=== PATIENT | female | born 1960 | race Two or more races ===

== ENCOUNTER 2016-06-01 19:49 | Inpatient (IN) | payer MEDICAID ==
--- NOTE | 2016-06-01 20:13 | EDPHY ---
H & P Stated Complaint: AMS, psych eval? Time Seen by Provider: 06/01/16 20:13 HPI/ROS: CHIEF COMPLAINT: AMS, agitation. HISTORY OF PRESENT ILLNESS: The patient is a 56-year-old female with who presents with AMS since yesterday. She has a history of dementia and brain atrophy and has a baseline that involves some confusion and disorientation. She was placed on anti-psychotics when she began to get angry and agitated at her children. Her daughter reports that she fell and hit her head 2 weeks ago and had a negative head CT in the hospital ([facility]). She has not been on her anti-psychotics since then. Since yesterday she has become increasingly agitated and confused. Her daughter says she is disoriented and has been smashing glasses at home. She is oriented to her address and the year. She believes it is June and a Thursday. Her daughter reports she has been having diarrhea, which is chronic. No fever, chills, chest pain, shortness of breath, palpitations, vomiting, urinary complaints, headache, lightheadedness. She does keep repeating that she has been falling down the stairs. She takes donepezil and Memantine for dementia. Her daughter called the [facility] today and has been attempting to find advanced care for the patient. REVIEW OF SYSTEMS: Limited secondary to patient's clinical condition. PAST MEDICAL HISTORY: "Brain atrophy," sleep apnea. Dementia. SOCIAL HISTORY: Here with family, lives in [place]. VITAL SIGNS: Reviewed by me GENERAL: Well-developed, well-nourished, resting comfortably in no respiratory distress. Keeps repeating I want purple hair. HEENT: Atraumatic. Eyes: No icterus, no injection. Mouth: Dry mucous membranes. No erythema or lesions. Neck: supple with no adenopathy. LUNGS: Clear to auscultation bilaterally, no wheezes, rhonchi or rales. CARDIAC: Regular rate and rhythm, no rubs, murmurs or gallops. ABDOMEN: Soft, nontender, nondistended, bowel sounds normal. BACK: No CVA tenderness. EXTREMITIES: No trauma. No edema. Range of motion is normal throughout. NEURO: Alert and oriented to person and place. Moving all extremities times 4. Grossly nonfocal. Normal stxqqe-hy-yrry. Normal gait. SKIN: Warm and dry, no rash. PSYCHIATRIC: Normal mentation, no agitation but she has occasionally swearing at her children. Portions of this note were transcribed by a medical manager. I personally performed a history, physical exam, medical decision making, and confirmed accuracy of information the transcribed note. Source: Family Exam Limitations: No limitations, Clinical condition - Medical/Surgical History Other PMH: brain atrophy?, sleep apnea - Social History Smoking Status: Never smoked Constitutional: Initial Vital Signs Heart Rate 81 06/01/16 20:07 Respiratory Rate 20 06/01/16 20:07 Blood Pressure 113/79 06/01/16 20:07 O2 Sat (%) 97 06/01/16 20:07 O2 Delivery Mode Room Air Allergies/Adverse Reactions: No Known Allergies Allergy (Unverified 06/01/16 20:06) Home Medications: Medication Instructions Recorded CALCIUM CITRATE 09/24/10 Diazepam [Valium] 2 mg PO Q8PRN PRN #10 tablet 09/24/10 Fish Oil 09/24/10 GLUCOSAMINE HCL 09/24/10 Garlic 09/24/10 VITAMIN D 09/24/10 Vitamin C 500mg 09/24/10 Vitamin E 09/24/10 Medical Decision Making - Diagnostics Imaging: Results: CT scan of the head was obtained. I viewed the images independently on the PACS system. I discussed the results of the study with the radiologist. Impression: Atrophy of the frontal and temporal lobes, could be consistent with Lewy body dementia. Please see the full radiology report. ED Course/Re-evaluation: An IV was established and labs ordered. Evaluation for metabolic cause of the patient's altered mental status was ordered. This is largely unremarkable. CT scan of the head demonstrates frontal and temporal atrophy, potentially consistent with Lewy body dementia. Patient's course was discussed with Dr. Dona Dennis Differential Diagnosis: After the history was obtained and physical exam performed, the following differential for the patient's altered mental status was considered included but was not limited to hypoglycemia, electrolyte disturbances, intercranial hemorrhage, tumor, drug or alcohol intoxication, stroke, dementia, dementia with psychotic features, or TIA. Consult/Admit Bed Type: Dr. Dona Giron, med surg - Data Points Laboratory Results: Laboratory Results 06/01/16 21:00 06/01/16 21:00 06/01/16 06/01/16 21:00 20:55 WBC 5.29 10^3/uL (3.80-9.50) RBC 4.39 10^6/uL (4.18-5.33) Hgb 13.5 g/dL (12.6-16.3) Hct 39.7 % (38.0-47.0) MCV 90.4 fL (81.5-99.8) MCH 30.8 pg (27.9-34.1) MCHC 34.0 g/dL (32.4-36.7) RDW 13.5 % (11.5-15.2) Plt Count 541 H 10^3/uL (150-400) MPV 8.2 L fL (8.7-11.7) Neut % (Auto) 53.3 % (39.3-74.2) Lymph % (Auto) 34.4 % (15.0-45.0) [place] % (Auto) 8.1 % (4.5-13.0) Eos % (Auto) 3.2 % (0.6-7.6) Baso % (Auto) 0.6 % (0.3-1.7) Nucleat RBC Rel Count 0.0 % (0.0-0.2) Absolute Neuts (auto) 2.82 10^3/uL (1.70-6.50) Absolute Lymphs (auto) 1.82 10^3/uL (1.00-3.00) Absolute Monos (auto) 0.43 10^3/uL (0.30-0.80) Absolute Eos (auto) 0.17 10^3/uL (0.03-0.40) Absolute Basos (auto) 0.03 10^3/uL (0.02-0.10) Absolute Nucleated RBC 0.00 10^3/uL (0-0.01) Immature Gran % 0.4 % (0.0-1.1) Immature Gran # 0.02 10^3/uL (0.00-0.10) Sodium 136 mEq/L (134-144) Potassium 4.6 mEq/L (3.5-5.2) Chloride 105 mEq/L (97-110) Carbon Dioxide 25 mEq/l (22-31) Anion Gap 6 mEq/L (8-16) BUN 12 mg/dL (7-23) Creatinine 0.5 L mg/dL (0.6-1.0) Estimated GFR > 60 Glucose 97 mg/dL (70-100) Calcium 9.4 mg/dL (8.5-10.4) Total Bilirubin 0.4 mg/dL (0.1-1.4) Conjugated Bilirubin 0.2 mg/dL (0.0-0.5) Unconjugated Bilirubin 0.2 mg/dL (0.0-1.1) AST 52 H IU/L (14-46) ALT 84 H IU/L (9-52) Alkaline Phosphatase 114 IU/L (38-126) Troponin I < 0.012 ng/mL (0-0.034) Total Protein 7.0 g/dL (6.3-8.2) Albumin 4.1 g/dL (3.5-5.0) Lipase 185.0 IU/L (23-300) Urine Color YELLOW Urine Appearance HAZY Urine pH 5.0 (5.0-7.5) Ur Specific [place] 1.005 (1.002-1.030) Urine Protein NEGATIVE (NEGATIVE) Urine Ketones NEGATIVE (NEGATIVE) Urine Blood 1+ H (NEGATIVE) Urine Nitrate NEGATIVE (NEGATIVE) Urine Bilirubin NEGATIVE (NEGATIVE) Urine Urobilinogen NEGATIVE EU (0.2-1.0) Ur Leukocyte Esterase NEGATIVE (NEGATIVE) Urine RBC 1-3 /hpf (0-3) Urine WBC 1-3 /hpf (0-3) Ur Epithelial Cells TRACE /lpf (NONE-1+) Ur Culture Indicated? NOT INDICATED (NI) Urine Glucose NEGATIVE (NEGATIVE) Urine Opiates Screen NEGATIVE (NEGATIVE) Urine Barbiturates NEGATIVE (NEGATIVE) Ur Phencyclidine Scrn NEGATIVE (NEGATIVE) Ur Amphetamine Screen NEGATIVE (NEGATIVE) U Benzodiazepines Scrn NEGATIVE (NEGATIVE) Urine Cocaine Screen NEGATIVE (NEGATIVE) U Marijuana (THC) Screen NEGATIVE (NEGATIVE) Departure - Departure Disposition: [facility] Impression: Altered mental status Qualifiers: Altered mental status type: unspecified Qualifier Code: (R41.82) Altered mental status, unspecified Dementia Qualifiers: Dementia type: unspecified type Dementia behavioral disturbance: with behavioral disturbance Qualifier Code: (F03.91) Unspecified dementia with behavioral disturbance Condition: Good Report Scribed for: Viviane M Feldhaus Report Scribed by: Peter Herrera Date of Report: 06/01/16 Time of Report: 20:24
[2016-06-01 21:12] LABS: COLOR YELLOW; LEUKOCYTE ESTERASE,URINE NEGATIVE (NEGATIVE); NITRITE,URINE NEGATIVE (NEGATIVE)
[2016-06-01 21:35] LABS: % IMMATURE GRANULYOCYTES 0.4 % (0.0-1.1); ABSOLUTE IMMATURE GRANULOCYTES 0.02 10^3/uL (0.00-0.10); ADD DIFF? NO; ADD MORPH? NO; ADD SCAN? NO; ATYPICAL LYMPHOCYTE FLAG 10 (0-99); FRAGMENT RBC FLAG 0 (0-99); HEMATOCRIT 39.7 % (38.0-47.0); HEMOGLOBIN 13.5 g/dL (12.6-16.3); LEFT SHIFT FLG 0 (0-99); LIPEMIA HEMOLYSIS FLAG 90 (0-99); MEAN CELL HEMOGLOBIN 30.8 pg (27.9-34.1); MEAN CELL VOLUME 90.4 fL (81.5-99.8); MEAN PLATELET VOLUME 8.2 fL (8.7-11.7); PLATELET CLUMPS FLAG 0 (0-99); PLATELET COUNT 541 10^3/uL (150-400); RED BLOOD CELL COUNT 4.39 10^6/uL (4.18-5.33); RED CELL DISTRIBUTION WIDTH 13.5 % (11.5-15.2)
[2016-06-01 22:01] LABS: ALANINE AMINOTRANSFERASE 84 IU/L (9-52); ALBUMIN 4.1 g/dL (3.5-5.0); ALKALINE PHOSPHATASE 114 IU/L (38-126); ANION GAP 6 mEq/L (8-16); ASPARTATE AMINOTRANSFERASE 52 IU/L (14-46); BILIRUBIN,TOTAL 0.4 mg/dL (0.1-1.4); BILIRUBIN-CONJUGATED 0.2 mg/dL (0.0-0.5); BILIRUBIN-UNCONJUGATED 0.2 mg/dL (0.0-1.1); CALCIUM 9.4 mg/dL (8.5-10.4); CARBON DIOXIDE 25 mEq/l (22-31); CHLORIDE 105 mEq/L (97-110); CREATININE 0.5 mg/dL (0.6-1.0); GLOMERULAR FILTRATION RATE > 60; GLUCOSE 97 mg/dL (70-100); POTASSIUM 4.6 mEq/L (3.5-5.2); SODIUM 136 mEq/L (134-144)
[2016-06-01 22:12] LABS: TROPONIN I < 0.012 ng/mL (0-0.034)
[2016-06-01] MEDS ORDERED: LORazepam 2 MG/ML INJ IVP ONE (22:13)
[2016-06-01] MEDS ORDERED: ONDANSETRON DISINTEGRATING 4 MG TAB PO PRN (23:10)
[2016-06-01] MEDS ORDERED: ONDANSETRON 4 MG/2 ML VIAL IVP PRN (23:10)
[2016-06-01] MEDS ORDERED: ACETAMINOPHEN 325 MG TAB PO PRN (23:10)
[2016-06-01] MEDS ORDERED: LORazepam 2 MG/ML INJ IVP PRN (23:10)
--- NOTE | 2016-06-01 23:46 | PDGENHP ---
History and Physical - Chief Complaint agitation - History of Present Illness the patient is a 56-year-old female with early onset dementia of unclear etiology who was brought to the ED with by her daughter for worsening behavioral disturbances. History is provided by patient's daughter as patient is unable to give detailed history, she kept stating she wanted to dye her purple. Per daughter, patient has been diagnosed with an early onset dementia of unclear etiology. She follows with Dr. Novoa and reports patient had brain imaging that revealed atrophy. Dementia has been complicated by behavioral disturbances, mostly agitation and aggression. Daughter states for the past 2 weeks these behavioral disturbances have been significantly worse. She has been hitting out who her family members, throwing objects and also falling more frequently. Daughter has been trying to arrange for home services or evaluation for long-term facility placement, but has been having difficulty with this. Today patient's behavior was too much for daughter to handle, so she called a crisis hotline and was directed to bring her mother to the ED for further evaluation. Daughter denies any recent evidence of fevers, chills, cough, nausea, vomiting or urinary complaints. Patient also denies any headache or pain on my evaluation. On arrival to the ED patient was hemodynamically stable. Labs were unremarkable. CT head revealed mild frontal/ temporal atrophy but no acute pathology. She was then admitted to the hospital service for further management. History Information - Allergies/Home Medication List Allergies/Adverse Reactions: No Known Allergies Allergy (Unverified 06/01/16 20:06) Home Medications: CALCIUM CITRATE 09/24/10 [Last Taken Unknown] Fish Oil 09/24/10 [Last Taken Unknown] GLUCOSAMINE HCL 09/24/10 [Last Taken Unknown] Garlic 09/24/10 [Last Taken Unknown] VITAMIN D 09/24/10 [Last Taken Unknown] Vitamin C 500mg 09/24/10 [Last Taken Unknown] Vitamin E 09/24/10 [Last Taken Unknown] I have personally reviewed and updated: family history, medical history, social history, surgical history - Past Medical History Additional medical history: early onset dementia. CLIFF - Surgical History Additional surgical history: . wrist surgery - Family History Additional family history: M: Alzheimer's dementia - Social History Smoking Status: Never smoked Alcohol Use: None Drug Use: None Additional social history: patient lives with her ex-, has 2 children who aid in her ADLs. Review of Systems ROS: 10pt was reviewed & negative except for what was stated in HPI & below Physical Exam Temp Pulse Resp BP Pulse Ox 82 18 107/62 96 06/01/16 23:28 06/01/16 23:28 06/01/16 23:28 06/01/16 23:28 Constitutional: no apparent distress, appears nourished, not in pain Eyes: PERRL, anicteric sclera, EOMI Ears, Nose, Mouth, Throat: moist mucous membranes, hearing normal, ears appear normal, no oral mucosal ulcers Cardiovascular: regular rate and rhythym, no murmur, rub, or gallop, pulses symmetric bilaterally, No JVD, No edema Peripheral Pulses: 2+: dorsalis-pedis (R), dorsalis-pedis (L) Respiratory: no respiratory distress, no rales or rhonchi, clear to auscultation Gastrointestinal: normoactive bowel sounds, soft, non-tender abdomen, no palpable masses, No guarding, No rebound Genitourinary: no bladder fullness, no bladder tenderness Skin: warm, normal color, no rashes or abrasions, no fluctuance, No mottled Musculoskeletal: full muscle strength, no muscle tenderness, normal joint ROM, no joint effusions Neurologic: AAOx3, sensation intact bilaterally, CN II-XII Intact, other ( no obvious focal deficits), No weakness, No numbness Psychiatric: poor insight, other ( patient answered all orientation questions appropriately and follows simple commands, occasionally had violent outbursts towards her son, poor insight) Lab Data & Imaging Review 06/01/16 21:00 06/01/16 21:00 WBC 5.29 10^3/uL (3.80-9.50) 06/01/16 21:00 RBC 4.39 10^6/uL (4.18-5.33) 06/01/16 21:00 Hgb 13.5 g/dL (12.6-16.3) 06/01/16 21:00 Hct 39.7 % (38.0-47.0) 06/01/16 21:00 MCV 90.4 fL (81.5-99.8) 06/01/16 21:00 MCH 30.8 pg (27.9-34.1) 06/01/16 21:00 MCHC 34.0 g/dL (32.4-36.7) 06/01/16 21:00 RDW 13.5 % (11.5-15.2) 06/01/16 21:00 Plt Count 541 10^3/uL (150-400) H 06/01/16 21:00 MPV 8.2 fL (8.7-11.7) L 06/01/16 21:00 Neut % (Auto) 53.3 % (39.3-74.2) 06/01/16 21:00 Lymph % (Auto) 34.4 % (15.0-45.0) 06/01/16 21:00 [place] % (Auto) 8.1 % (4.5-13.0) 06/01/16 21:00 Eos % (Auto) 3.2 % (0.6-7.6) 06/01/16 21:00 Baso % (Auto) 0.6 % (0.3-1.7) 06/01/16 21:00 Nucleat RBC Rel Count 0.0 % (0.0-0.2) 06/01/16 21:00 Absolute Neuts (auto) 2.82 10^3/uL (1.70-6.50) 06/01/16 21:00 Absolute Lymphs (auto) 1.82 10^3/uL (1.00-3.00) 06/01/16 21:00 Absolute Monos (auto) 0.43 10^3/uL (0.30-0.80) 06/01/16 21:00 Absolute Eos (auto) 0.17 10^3/uL (0.03-0.40) 06/01/16 21:00 Absolute Basos (auto) 0.03 10^3/uL (0.02-0.10) 06/01/16 21:00 Absolute Nucleated RBC 0.00 10^3/uL (0-0.01) 06/01/16 21:00 Immature Gran % 0.4 % (0.0-1.1) 06/01/16 21:00 Immature Gran # 0.02 10^3/uL (0.00-0.10) 06/01/16 21:00 Sodium 136 mEq/L (134-144) 06/01/16 21:00 Potassium 4.6 mEq/L (3.5-5.2) 06/01/16 21:00 Chloride 105 mEq/L (97-110) 06/01/16 21:00 Carbon Dioxide 25 mEq/l (22-31) 06/01/16 21:00 Anion Gap 6 mEq/L (8-16) 06/01/16 21:00 BUN 12 mg/dL (7-23) 06/01/16 21:00 Creatinine 0.5 mg/dL (0.6-1.0) L 06/01/16 21:00 Estimated GFR > 60 06/01/16 21:00 Glucose 97 mg/dL (70-100) 06/01/16 21:00 Calcium 9.4 mg/dL (8.5-10.4) 06/01/16 21:00 Total Bilirubin 0.4 mg/dL (0.1-1.4) 06/01/16 21:00 Conjugated Bilirubin 0.2 mg/dL (0.0-0.5) 06/01/16 21:00 Unconjugated Bilirubin 0.2 mg/dL (0.0-1.1) 06/01/16 21:00 AST 52 IU/L (14-46) H 06/01/16 21:00 ALT 84 IU/L (9-52) H 06/01/16 21:00 Alkaline Phosphatase 114 IU/L (38-126) 06/01/16 21:00 Troponin I < 0.012 ng/mL (0-0.034) 06/01/16 21:00 Total Protein 7.0 g/dL (6.3-8.2) 06/01/16 21:00 Albumin 4.1 g/dL (3.5-5.0) 06/01/16 21:00 Lipase 185.0 IU/L (23-300) 06/01/16 21:00 Urine Color YELLOW 06/01/16 20:55 Urine Appearance HAZY 06/01/16 20:55 Urine pH 5.0 (5.0-7.5) 06/01/16 20:55 Ur Specific [place] 1.005 (1.002-1.030) 06/01/16 20:55 Urine Protein NEGATIVE (NEGATIVE) 06/01/16 20:55 Urine Ketones NEGATIVE (NEGATIVE) 06/01/16 20:55 Urine Blood 1+ (NEGATIVE) H 06/01/16 20:55 Urine Nitrate NEGATIVE (NEGATIVE) 06/01/16 20:55 Urine Bilirubin NEGATIVE (NEGATIVE) 06/01/16 20:55 Urine Urobilinogen NEGATIVE EU (0.2-1.0) 06/01/16 20:55 Ur Leukocyte Esterase NEGATIVE (NEGATIVE) 06/01/16 20:55 Urine RBC 1-3 /hpf (0-3) 06/01/16 20:55 Urine WBC 1-3 /hpf (0-3) 06/01/16 20:55 Ur Epithelial Cells TRACE /lpf (NONE-1+) 06/01/16 20:55 Ur Culture Indicated? NOT INDICATED (NI) 06/01/16 20:55 Urine Glucose NEGATIVE (NEGATIVE) 06/01/16 20:55 Urine Opiates Screen NEGATIVE (NEGATIVE) 06/01/16 21:00 Urine Barbiturates NEGATIVE (NEGATIVE) 06/01/16 21:00 Ur Phencyclidine Scrn NEGATIVE (NEGATIVE) 06/01/16 21:00 Ur Amphetamine Screen NEGATIVE (NEGATIVE) 06/01/16 21:00 U Benzodiazepines Scrn NEGATIVE (NEGATIVE) 06/01/16 21:00 Urine Cocaine Screen NEGATIVE (NEGATIVE) 06/01/16 21:00 U Marijuana (THC) Screen NEGATIVE (NEGATIVE) 06/01/16 21:00 Visualized and Interpreted imaging results: Yes Interpretation: CT head: no acute intracranial abnormalities; fronto-temporal atrophy Assessment & Plan Assessment: patient is a 56-year-old female with a history of early-onset dementia who presents to the ED you with her daughter with complaints of progressive worsening behavioral disturbances. Plan: # dementia with behavioral disturbances Per history of provided by daughter, patient's current mental status has not acutely worsened, but has been progressively worsening over the past several weeks to months. She is having difficulty maintaining patient's safety in her home. ED workup does not reveal any obvious organic / medical cause of her encephalopathy. Patient is nonfocal on exam, labs do not reveal any infectious etiology and patient has no signs or symptoms of meningitis/encephalitis. CT findings today indicated possibility of Lewy body dementia. Will need to contact patient's outpatient neurologist to assess extent and findings of the dementia workup that has already been performed. Psychosis/psychiatric disorder is also on the differential. - cont patient's home meds - ativan/ haldol prn - neurology consult - pt/ot assessment - will check rpr, b12, folate, tsh and supplement thiamine - if patient has not had an MRI recently as outpt, can consider checking MRI brain # transaminitis Mild transaminitis on admission labs. On review of medical record, patient underwent abdominal US in 01/2016 for transaminitis that was largely unrevealing. Will check hepatitis serologies. # CLIFF Patient has diagnosed CLIFF, wears CPAP at home. Daughter will bring in machine. # dispo: will admit to inpatient service for likely > 2 mn stay given unknown etiology of behavioral disturbances #gen: regular diet DVT ppx: lovenox Full code
--- NOTE | 2016-06-02 00:03 | CT ---
CT Head (Without Contrast) 21:54 p.m. Indication: Altered mental status. Dementia. Comparison: None Technique: Standard noncontrast head CT protocol utilizing 5 mm thick collimated slices and field of view of 23 cm. Dose reduction techniques were utilized. Findings: Mild atrophy involving bifrontal and anterior temporal lobes. No intracranial hemorrhage, m ass lesion, swelling, or extraaxial fluid collection. The ventricles are normal caliber and midline. The ordaz and white matter has normal attenuation. No evidence of ischemia. The bones are unremarkable . The paranasal sinuses are clear. Impression: 1. No acute intracranial process. 2. Mild frontal and temporal lobe atrophy Comment: Results called to Estefania Khan NP at 22:05 June 01, 2016.
[2016-06-02] MEDS: clonazePAM 0.5 MG TAB PO SCH ×2 (00:17)
[2016-06-02 05:27] LABS: % IMMATURE GRANULYOCYTES 0.2 % (0.0-1.1); ABSOLUTE IMMATURE GRANULOCYTES 0.01 10^3/uL (0.00-0.10); ADD DIFF? NO; ADD MORPH? NO; ADD SCAN? NO; ATYPICAL LYMPHOCYTE FLAG 20 (0-99); FRAGMENT RBC FLAG 0 (0-99); HEMATOCRIT 39.3 % (38.0-47.0); HEMOGLOBIN 12.9 g/dL (12.6-16.3); LEFT SHIFT FLG 0 (0-99); LIPEMIA HEMOLYSIS FLAG 80 (0-99); MEAN CELL HEMOGLOBIN 30.1 pg (27.9-34.1); MEAN CELL HEMOGLOBIN CONCENTR. 32.8 g/dL (32.4-36.7); MEAN CELL VOLUME 91.8 fL (81.5-99.8); PLATELET CLUMPS FLAG 0 (0-99); PLATELET COUNT 510 10^3/uL (150-400); RED BLOOD CELL COUNT 4.28 10^6/uL (4.18-5.33); RED CELL DISTRIBUTION WIDTH 13.5 % (11.5-15.2)
[2016-06-02 05:39] LABS: ALANINE AMINOTRANSFERASE 70 IU/L (9-52); ALBUMIN 3.7 g/dL (3.5-5.0); ALKALINE PHOSPHATASE 89 IU/L (38-126); ANION GAP 4 mEq/L (8-16); ASPARTATE AMINOTRANSFERASE 44 IU/L (14-46); BILIRUBIN,TOTAL 0.5 mg/dL (0.1-1.4); CALCIUM 9.2 mg/dL (8.5-10.4); CARBON DIOXIDE 26 mEq/l (22-31); CHLORIDE 108 mEq/L (97-110); CREATININE 0.5 mg/dL (0.6-1.0); GLOMERULAR FILTRATION RATE > 60; GLUCOSE 91 mg/dL (70-100); MAGNESIUM 2.3 mg/dL (1.6-2.3); POTASSIUM 4.7 mEq/L (3.5-5.2); SODIUM 138 mEq/L (134-144); TOTAL PROTEIN 6.2 g/dL (6.3-8.2)
[2016-06-02 06:45] LABS: FOLATE SERUM > 20.00 ng/mL (2.80 - >20.00)
--- NOTE | 2016-06-02 08:38 | HOSPPROG ---
Hospitalist Progress Note Assessment/Plan: Patient is a 56-year-old female with a history of early-onset dementia. (Dr Torre is in the process of getting records from her neurologist). She was brought to the emergency room with her daughter. The patient has been having progressive worsening behavioral disturbances. I reviewed her care with the physician who admitted her last night. Chart reviewed. In addition, Dr Torre recommends psychiatry to evaluate. Have called the [facility] line and they are looking into it. #. Behavioral disturbances * initial concern for Dementia /pt on Aricept and Namenda * reviewed her laboratory data/ no etiology of infection, labs overall stable. * CT scan findings show nothing acute * reviewed her care with Dr Torre/ he doesn't believe this is dementia but likely has an underlying psych component * per pharmacy patient has been on lithium and Haldol in the past, but not currently on this/ she is on Prozac * she's impulsive, repeats turning tv off and on, but knows person, place, time * I have left a voice mail for Dr Moran to see/ spoke with [facility] in addition # transaminitis * improved today * hep panel negative # CLIFF * wears CPAP at home. Daughter will bring in machine. # dispo: will admit to inpatient service for likely > 2 mn stay given unknown etiology of behavioral disturbances/ Have asked Dr Torre to speak with Dr Moran about his evaluation. Appreciate his involvement. Subjective: Manisha said she has no complaints, but has some neck pain from a fall a year ago. Objective: Vital Signs Temp Pulse Resp BP Pulse Ox 36.9 C 76 16 119/83 H 96 06/02/16 07:04 06/02/16 07:04 06/02/16 07:04 06/02/16 07:04 06/02/16 07:04 Laboratory Results 06/02/16 04:24 06/02/16 04:24 06/01/16 06/02/16 06/03/16 05:59 05:59 05:59 Intake Total 10 Balance 10 - Physical Exam Constitutional: no apparent distress, other (slender) Eyes: PERRL Ears, Nose, Mouth, Throat: hearing normal Cardiovascular: regular rate and rhythym Respiratory: no respiratory distress Gastrointestinal: normoactive bowel sounds Skin: warm, normal color Musculoskeletal: full muscle strength, no muscle tenderness Neurologic: AAOx3, other (impulsive ) Psychiatric: not encephalopathic, poor insight ICD10 Worksheet Patient Problems: Problems Problem Status Diagnosed Altered mental status Acute Dementia Acute
[2016-06-02] MEDS: HALOPERIDOL 0.5 MG TAB PO PRN (09:23)
[2016-06-02] MEDS: THIAMINE HCL 100 MG TAB PO SCH (09:24)
[2016-06-02] MEDS: ENOXAPARIN 40 MG/0.4 ML SYR SC SCH ×2 (09:24→10:19)
[2016-06-02] MEDS ORDERED: HALOPERIDOL 1 MG TAB PO ONE (12:02)
[2016-06-02] MEDS: MEMANTINE HCL 5 MG TAB PO SCH ×2 (12:24→20:49)
[2016-06-02] MEDS: FLUoxetine 20 MG CAP PO SCH (12:43)
[2016-06-02] MEDS: Donepezil Hcl [Aricept] 23 MG PO SCH (20:48)
[2016-06-02] MEDS: clonazePAM 1 MG TAB PO SCH (20:49)
[2016-06-02] MEDS: traZODone 100 MG TAB PO SCH (20:49)
[2016-06-02] MEDS ORDERED: clonazePAM 0.5 MG TAB PO SCH (21:00)
[2016-06-02] MEDS ORDERED: MIRTAZAPINE 15 MG TAB PO SCH (21:00)
--- NOTE | 2016-06-02 23:24 | GCON ---
[f rep st] CONSULTATION INPATIENT NEUROLOGY CONSULTATION DATE OF CONSULTATION: 06/02/2016 CHIEF COMPLAINT: Cognitive difficulties. HISTORY OF PRESENT ILLNESS: Dr. Brit Giron consulted Neurology for evaluation of patient's co gnitive problems. The results of evaluation are placed in the EMR for review. This is a 56-year-old female with a diagnosis of early-onset dementia of unclear etiology who was bro ught in by her daughter to the emergency room. Reported she has long-standing worsening behavioral d isturbances. The patient cannot give a detailed history. This information is taken from the medical chart, which is reportedly provided by daughter to the emergency room. Her daughter states the hpoenix ent was diagnosed with early onset dementia of unclear etiology. She was followed by a local neurolo gist named Dr. Anoop Novoa. There is report that she had a brain MRI that was reported to show s ome mild atrophy, and unexplained behavioral disturbances, mostly agitation and aggression. Apparent ly, her symptoms have been worsening over weeks to months and it came to the point where the daughter could no longer care for the patient at her home, so the daughter dropped the patient off at the [facility] room for further evaluation. It does not appear the patient has any acute confusional state, and she had no evidence of any infection or metabolic abnormality on lab testing and head CT. It maria teresa ears that this is her underlying aggressive issues. At some point, the patient appears to be disorie nted to place or date. Other times, she is completely oriented to situation. Sometimes, her short-t erm memory will be intact; other times, short-term and long-term memory do not work per my interactio ns with her. HOME MEDICATIONS: See chart. PAST MEDICAL HISTORY: Early-onset dementia, obstructive sleep apnea. PAST SURGICAL HISTORY: C section. Wrist surgery. FAMILY HISTORY: Alzheimer's dementia. SOCIAL HISTORY: Never smoked. REVIEW OF SYSTEMS: A 10-point review of systems is negative except what was stated in HPI. This is complicated by the patient's cognitive difficulties. PHYSICAL EXAM: VITAL SIGNS: Blood pressure is 119/83, heart rate 76, respirations 16, saturating 96 % on room air. Temperature 36.9 degrees Celsius. GENERAL: No acute distress. EYES: Funduscopic e xam: Could not visualize optic discs. LUNGS: Clear to auscultation bilaterally. No rhonchi or ral es. HEART: Regular rate and rhythm. No murmurs. No carotid bruits auscultated. NEUROLOGIC: Ment al status: She is alert and oriented to person, place and date by talon. She becomes inattentive a t times but at other times, fully attends to me. Her short-term memory was intact when I tested her at 1 point, but at another point, she had problems with long-term and short-term memory. It seemed t o fluctuate at points. She seemed to have cognitive slowing at some points, other times, no cognitiv e problems in a fluctuating course of her symptoms. Fund of knowledge appeared intact. Language fun ctions are normal. Cranial nerves: Pupils equal, round, reactive to light. Visual tinoco full to c onfrontation. Extraocular muscles intact. Bilateral face intact sensation and motor movement. Hear ing intact to conversation. Uvula raises symmetrically. Tongue protrudes midline. Traps 5/5 streng th. Motor exam: Normal tone and strength all 4 extremities. Sensory exam: All 4 extremities intac t to light touch. Reflexes: Bilateral brachioradialis and patellas 2/4. Coordination: Bilateral f [id number] and rapid alternating movements are normal. Gait deferred. LABS: June 01, 2016: UA negative. U-tox negative. June 02, 2016: CBC with platelets of 510. CMP with creatinine of 0.5, ALT of 70, B12 greater yenifer n 1000, TSH normal, RPR pending. RADIOLOGY: June 01, 2016: Head CT shows mild frontal and temporal atrophy but no acute changes. I personally visualized this study. ASSESSMENT: Months of slowly progressing agitation, anxiety and fluctuating attention: The patient' s neurologic exam is normal. There are no clear signs of impairment in short-term memory that I woul d suspect in dementia. At some point, she has problems attending to the environment, at other times, she has no problems at all. This appears more in line with a pseudodementia state such as depressio n or rodrigo. Certainly, a rare early-onset dementia is possible, but this seems highly unlikely given the patient's young age and lack of any objective neurologic deficits. At this point, I think a psy chiatric diagnosis should be excluded prior to the diagnosis of early-onset dementia. I would recomm end formal psychiatric consultation. If the patient is found to have early-onset dementia, treatment is symptomatic and would probably require primary psychiatric medications anyway. RPR pending and T SH, B12 levels are unremarkable in current lab testing. The patient reports she had a brain MRI, and showed mild atrophy recently. Her current head CT shows no significant focal findings. The mild at rophy seen on head CT could be normal variant, as well. RECOMMENDATIONS: 1. Formal psychiatry evaluation is recommended. 2. I have requested records from Dr. Novoa's office to formally review, but they have not yet retu rned. 3. Neurology will continue to follow this patient at this time. /[id number]/MODL
[2016-06-03] MEDS ORDERED: Herbals/Supplements -Info Only PO SCH (09:00)
[2016-06-03] MEDS: ENOXAPARIN 40 MG/0.4 ML SYR SC SCH (09:31)
[2016-06-03] MEDS: MEMANTINE HCL 5 MG TAB PO SCH ×2 (09:31→22:25)
[2016-06-03] MEDS: OMEGA-3 FATTY ACIDS 1,000 MG CAP PO SCH (09:31)
[2016-06-03] MEDS: THIAMINE HCL 100 MG TAB PO SCH (09:31)
[2016-06-03] MEDS: FLUoxetine 20 MG CAP PO SCH (10:25)
--- NOTE | 2016-06-03 10:38 | HOSPPROG ---
Hospitalist Progress Note Assessment/Plan: Patient is a 56-year-old female with a history of early-onset dementia. (Dr Torre is in the process of getting records from her neurologist). She was brought to the emergency room with her daughter. The patient has been having progressive worsening behavioral disturbances. #. Behavioral disturbances * Prozac and Remeron dc per psychiatry * patient is compulsive this morning about washing her hands/washed them 4 times while I was seeing her/pacing * initial concern for Dementia /pt on Aricept and Namenda * reviewed her laboratory data/ no etiology of infection, labs overall stable. * CT scan findings show nothing acute * per pharmacy patient has been on lithium and Haldol in the past, but not currently on this * trial of Zyprexa * will try and get an MRI today to evaluate further * reviewed her care with Dr Torre and he will f/u with her in the OP setting * per nursing staff, she slept well last night # transaminitis * improved * hep panel negative # CLIFF * wears CPAP at home. Daughter will bring in machine. # dispo: pending/ she will need a locked unit/ family can't take care of her. She has a 16 y/o son who is with her daughter who is in her 30's/ Subjective: Manisha doesn't answer me if asked if she is in pain. Objective: Vital Signs Temp Pulse Resp BP Pulse Ox 37.0 C 100 18 101/54 L 95 06/03/16 07:51 06/03/16 07:51 06/03/16 07:51 06/03/16 07:51 06/03/16 07:51 Laboratory Results 06/02/16 04:24 06/02/16 04:24 06/02/16 06/03/16 06/04/16 05:59 05:59 05:59 Intake Total 10 Balance 10 - Physical Exam Constitutional: appears nourished, not in pain Eyes: PERRL Ears, Nose, Mouth, Throat: hearing normal Respiratory: no respiratory distress Gastrointestinal: normoactive bowel sounds Skin: warm Musculoskeletal: full muscle strength Neurologic: other (alert and oriented to herself, children, date) Psychiatric: poor insight, other (difficult to assess/ she keeps washing her hands, paces frequently) ICD10 Worksheet Patient Problems: Problems Problem Status Diagnosed Altered mental status Acute Dementia Acute
--- NOTE | 2016-06-03 11:57 | SOAPPROG ---
SOAP Progress Note Assessment/Plan: Assessment: Psych eval-full note to follow Pt is a 56 y/o female with a hx of early onset dementia with atrophy of brain on scan who has no formal psych hx. Psych eval requested to R/O out primary psych dx. Impression-Dementia NOS with behavioral and mood disturbance Plan:Pt presents with classic sx of dementia-perseverating, disorientation to place and date, poor memory, spelled WORLD backwards "DLWO", does not know current President, cannot remember what she had for breakfast "lentils," word finding difficulty, behavior disturbance D/C prozac-is stimulating pt D/C remeron-can be stimulating pt no current sx of primary psych dx will add Zyprexa 5mg QHS for behavior and mood problems sec to dementia needs locked unit on a SNF as family unable to care for pt 06/03/16 12:01 Subjective: "Can you close the door-I can't sleep with it open?" She meant curtains Objective: Vital Signs Temp Pulse Resp BP Pulse Ox 37.0 C 100 18 101/54 L 95 06/03/16 07:51 06/03/16 07:51 06/03/16 07:51 06/03/16 07:51 06/03/16 07:51 Laboratory Results 06/02/16 04:24 06/02/16 04:24 06/02/16 06/03/16 06/04/16 05:59 05:59 05:59 Intake Total 10 Balance 10 Pt is Alert but thinks it is 2015, we are in the ER, and it is May 19-pt perseverates on washing hands and going out of her room mood-labile affect-broad + word finding difficulty no A/V H no S/H I sleep/appetite/energy levels-wnl conc-poor memory-impaired does not know Pres cannot remember what she had for breakfast or where she was living no sx of psychosis/rodrigo I/J-poor - Time Spent With Patient Time Spent With Patient: 50' - Pending Discharge Pending Discharge Within 24 Hours: No Pending Discharge Within 48 Hours: No ICD10 Worksheet Patient Problems: Problems Problem Status Diagnosed Altered mental status Acute Dementia Acute
[2016-06-03] MEDS ORDERED: DIAZEPAM 10 MG TAB PO ONE (15:53)
[2016-06-03] MEDS ORDERED: DIAZEPAM 5 MG TAB PO ONE (16:00)
--- NOTE | 2016-06-03 16:15 | NEUROPROG ---
Assessment: CC: F/U for possible early-onset dementia HPI: This is a 56-year-old female with a diagnosis of early-onset dementia of unclear etiology who was brought in by her daughter to the emergency room. Reported she has long-standing worsening behavioral disturbances. The patient cannot give a detailed history. This information is taken from the medical chart, which is reportedly provided by daughter to the emergency room. Her daughter states the patient was diagnosed with early onset dementia of unclear etiology. She was followed by a local neurologist named Dr. Anoop Novoa. There is report that she had a brain MRI that was reported to show some mild atrophy, and unexplained behavioral disturbances, mostly agitation and aggression. Apparently, her symptoms have been worsening over weeks to months and it came to the point where the daughter could no longer care for the patient at her home, so the daughter dropped the patient off at the emergency room for further evaluation. It does not appear the patient has any acute confusional state, and she had no evidence of any infection or metabolic abnormality on lab testing and head CT. It appears that this is her underlying aggressive issues. At some point, the patient appears to be disoriented to place or date. Other times, she is completely oriented to situation. Sometimes , her short-term memory will be intact; other times, short-term and long-term memory do not work per my interactions with her. PN: 06/03/16- Pt was seen by psychiatry whom felt her symptoms were most consistent with dementia. Psychiatry recommended medication changes to help control her behavior. I was unable to obtain records from her outpatient neurologist so will proceed with atypical dementia evaluation with brain MRI w/ and w/o con and paraneoplastic panel. Pt will likely need placement as she cannot care for herself and her family cannot provide care for her. PMHx: Early-onset dementia, obstructive sleep apnea. PSHx: C section. Wrist surgery. FHx: Alzheimer's dementia. SHx: Never smoked. LABS: June 01, 2016: UA negative. U-tox negative. June 02, 2016: CBC with platelets of 510. CMP with creatinine of 0.5, ALT of 70, B12 greater than 1000, TSH normal, RPR neg RADIOLOGY: June 01, 2016: Head CT shows mild frontal and temporal atrophy but no acute changes. I personally visualized this study. ASSESSMENT: 1. Possible Early-onset Dementia: Her neurologic exam has no clear objective abnormalities other than her cognitive problems which seem more like rodrigo and pseudodementia to me but psychiatric evaluation felt it was clearly dementia on 06/02/16. RPR/B12/TSH labs unremarkable in and head CT showed only mild atrophy. I will proceed with atypical dementia evaluation with brain MRI w/ and w/o con and paraneoplastic panel at [place] send out. RECOMMENDATIONS: - Agree with psychiatric med recommendations, like psychiatric input will be espinoza long-term in appropriate use of psychiatric medications for behavioral control - Brain MRI w/ and w/o con - Paraneoplastic panel for encephalitis at [place] - Consider placement as patient cannot care for herself and her family cannot care for her - Neurology will continue to follow - F/U with outpatient neurology 4 weeks after discharge 35 min spent with patient and her primary provider in the hospital, majority of time spent coordinating care for her and determining proper placement and diagnositic work up. Objective: Vital Signs Temp Pulse Resp BP Pulse Ox 37.0 C 100 18 101/54 L 95 06/03/16 07:51 06/03/16 07:51 06/03/16 07:51 06/03/16 07:51 06/03/16 07:51 Laboratory Results 06/02/16 04:24 06/02/16 04:24 06/02/16 06/03/16 06/04/16 05:59 05:59 05:59 Intake Total 10 Balance 10 Allergies/Adverse Reactions: No Known Allergies Allergy (Unverified 06/01/16 20:06)
[2016-06-03] MEDS: clonazePAM 1 MG TAB PO SCH (22:25)
[2016-06-03] MEDS: OLANZapine DISINTEGR 5 MG TAB PO SCH (22:25)
[2016-06-03] MEDS: traZODone 100 MG TAB PO SCH (22:25)
[2016-06-03] MEDS: Donepezil Hcl [Aricept] 23 MG PO SCH (22:25)
[2016-06-04] MEDS: OMEGA-3 FATTY ACIDS 1,000 MG CAP PO SCH (09:06)
[2016-06-04] MEDS: MEMANTINE HCL 5 MG TAB PO SCH ×2 (09:07→20:36)
[2016-06-04] MEDS: THIAMINE HCL 100 MG TAB PO SCH (09:07)
[2016-06-04] MEDS: ENOXAPARIN 40 MG/0.4 ML SYR SC SCH (09:07)
--- NOTE | 2016-06-04 12:45 | HOSPPROG ---
Hospitalist Progress Note Assessment/Plan: Patient is a 56-year-old female with a history of early-onset dementia. (Dr Torre is in the process of getting records from her neurologist). She was brought to the emergency room with her daughter. The patient has been having progressive worsening behavioral disturbances. This is my 1st encounter with the patient, chart reviewed. #. Behavioral disturbances * Prozac and Remeron dc per psychiatry * Patient unable to sit still. Continues to pace back and forth in the hallway with the aid. * initial concern for Dementia /pt on Aricept and Namenda * reviewed her laboratory data/ no etiology of infection, labs overall stable. * CT scan findings show nothing acute * per pharmacy patient has been on lithium and Haldol in the past, but not currently on this * trial of Zyprexa * will try and get an MRI to evaluate further date outpatient will be able to be successful * reviewed her care with Dr Torre and he will f/u with her in the OP setting * per nursing staff, she slept well last night # transaminitis * improved * hep panel negative # CLIFF * wears CPAP at home. Daughter will bring in machine. # dispo: pending/ she will need a locked unit/ family can't take care of her. She has a 16 y/o son who is with her daughter who is in her 30's Reviewed with the correctional case manager/ Subjective: Up ambulating in the hallway. No specific complaints or issues. Objective: Vital Signs Temp Pulse Resp BP Pulse Ox 36.7 C 66 16 104/56 L 96 06/04/16 07:56 06/04/16 07:56 06/04/16 07:56 06/04/16 07:56 06/04/16 07:56 Laboratory Results 06/02/16 04:24 06/02/16 04:24 - Physical Exam Constitutional: no apparent distress, appears nourished, not in pain Eyes: PERRL, anicteric sclera, EOMI Ears, Nose, Mouth, Throat: moist mucous membranes, hearing normal, No oral thrush Cardiovascular: regular rate and rhythym, No JVD, No edema Respiratory: no respiratory distress, no rales or rhonchi, reduced air movement Gastrointestinal: No tenderness, No ascites, No guarding Skin: warm, normal color, No erythema Musculoskeletal: full muscle strength, normal joint ROM, no joint effusions Neurologic: No AAOx3 Psychiatric: not anxious, flat affect, poor memory, No thought process linear ICD10 Worksheet Patient Problems: Problems Problem Status Diagnosed Altered mental status Acute Dementia Acute
--- NOTE | 2016-06-04 14:07 | BCON ---
[f rep st] BEHAVIORAL HEALTH CONSULTATION PSYCHIATRIC CONSULTATION DATE OF CONSULTATION: 06/03/2016 REASON FOR CONSULTATION: Patient diagnosed with dementia but was showing mood instability. HISTORY OF PRESENT ILLNESS: The patient is a 56-year-old female who has a diagnosis of early onset dementia of unclear etiology, who was brought into the [facility] ED by her daughter on 06/01/2016. According to the medical chart which was provided by the daughter, the patient was diagnosed with early onset dementia and was followed by a local neurologist, Dr. Anoop Novoa. There is a report that she had a brain MRI that was reported to show some mild atrophy and unexplained behavioral disturbances, mostly agitation and aggression. Her symptoms have been worsening over weeks to months, and it came to the point where the daughter could no longer live with the patient in her home. The pt's daughter dropped the patient off at the emergency room for further evaluation. There was no evidence of infection or metabolic abnormality on lab testing. At some point, the patient was disoriented to place and date. When neurologist saw her, sometimes her short-term memory was intact and other times her short- term and long-term memory were impaired. The patient was seen along with her aide. She was perseverating on getting out of her room and kept getting into her wheelchair and wanting to leave. She then laid in her bed and stated, "please close the door. I can't sleep with it open." However, she was pointing to the curtains at the time. She thought she was in the emergency room and could not say the name of the hospital. She thought the year was 2015 , did not know the president, and did not know what she had for breakfast. She did not appear manic, however, she appeared to have a irritable mood with perseveration. She earlier had been talking about wanting purple hair. The aide reported that was her favorite color. The patient could not sit still. It was noted that she had been restarted on her outpatient Prozac as well as Remeron, both of which could be stimulating her. PSYCHIATRIC HISTORY: The patient denies any previous psychiatric history. There is none reported by the family. No history of suicide attempts. No history of hospitalizations. It was reported she was on lithium and Haldol in the past. This was probably used to control her mood and behavior secondary to her dementia. Currently, she is on Remeron, Prozac, and trazodone as well of Klonopin at night. MEDICAL HISTORY: As above. She wears a CPAP at home. SOCIAL HISTORY: Patient was living with her daughter. The patient states she is . However, her memory is so poor it is hard to get a history. Her daughter can no longer take care of her. She states she has 2 children. She reportedly has a 16-year-old son who is with her daughter, who is in her 30s. No history of substance abuse reported. MENTAL STATUS: The patient is disoriented to year. She thinks it is 2015. She does know the month but thinks it is May 19. She thinks she is in the emergency room, does not know the name of the hospital. She perseverates on washing her hands and going out of her room and needs constant redirection to sit down and complete the interview. Mood is labile and irritable. She is angry at times when asked about her and angry at her daughter. Affect is broad. She does have word finding difficulty as she pointed to the curtains and stated, "close the door". She denied any auditory or visual hallucinations and did not appear to be responding to internal stimuli. She denies feeling suicidal or homicidal. States she sleeps well, eats well, and energy levels appears high. Concentration is poor. Memory is impaired. The patient did not know what she had for breakfast; she stated "lentils". Also could not say where she was living prior to coming to the hospital. No current symptoms of psychosis or rodrigo. Positive symptoms of dementia-related mood lability and behavioral disturbance. Insight and judgment are poor. IMPRESSION: Dementia, not otherwise specified, with mood instability and behavioral disturbance. PLAN: We will discontinue Prozac and Remeron. We will start Zyprexa 5 mg q.h.s. for mood stability and behavioral problems and titrate up as needed. This will also help her sleep. She does not need Klonopin, Remeron, and trazodone all at night. Will plan to D/C Trazodone and taper Klonopin. She is psychiatrically stable for placement in a locked facility at this time. Will follow. /[id number]/MODL MTDD
--- NOTE | 2016-06-04 15:46 | NEUROPROG ---
Assessment: CC: F/U for possible early-onset dementia HPI: This is a 56-year-old female with a diagnosis of early-onset dementia of unclear etiology who was brought in by her daughter to the emergency room. Reported she has long-standing worsening behavioral disturbances. The patient cannot give a detailed history. This information is taken from the medical chart, which is reportedly provided by daughter to the emergency room. Her daughter states the patient was diagnosed with early onset dementia of unclear etiology. She was followed by a local neurologist named Dr. Anoop Novoa. There is report that she had a brain MRI that was reported to show some mild atrophy, and unexplained behavioral disturbances, mostly agitation and aggression. Apparently, her symptoms have been worsening over weeks to months and it came to the point where the daughter could no longer care for the patient at her home, so the daughter dropped the patient off at the emergency room for further evaluation. It does not appear the patient has any acute confusional state, and she had no evidence of any infection or metabolic abnormality on lab testing and head CT. It appears that this is her underlying aggressive issues. At some point, the patient appears to be disoriented to place or date. Other times, she is completely oriented to situation. Sometimes , her short-term memory will be intact; other times, short-term and long-term memory do not work per my interactions with her. PN: 06/03/16- Pt was seen by psychiatry whom felt her symptoms were most consistent with dementia. Psychiatry recommended medication changes to help control her behavior. I was unable to obtain records from her outpatient neurologist so will proceed with atypical dementia evaluation with brain MRI w/ and w/o con and paraneoplastic panel. Pt will likely need placement as she cannot care for herself and her family cannot provide care for her. 06/04/16- Brain MRI could not be completed as patient could not lie still. Paraneoplastic label panel sent (likely back in 2-3 weeks). No new issues today. Pt unchanged. Obtained outpatient records from [facility] ER visit and no previous MRI of brain was found. PMHx: Early-onset dementia, obstructive sleep apnea. PSHx: C section. Wrist surgery. FHx: Alzheimer's dementia. SHx: Never smoked. LABS: June 01, 2016: UA negative. U-tox negative. June 02, 2016: CBC with platelets of 510. CMP with creatinine of 0.5, ALT of 70, B12 greater than 1000, TSH normal, RPR neg RADIOLOGY: June 01, 2016: Head CT shows mild frontal and temporal atrophy but no acute changes. I personally visualized this study. ASSESSMENT: 1. Possible Early-onset Dementia: Her neurologic exam has no clear objective abnormalities other than her cognitive problems which seem more like rodrigo and pseudodementia to me but psychiatric evaluation felt it was clearly dementia on 06/02/16. RPR/B12/TSH labs unremarkable in and head CT showed only mild atrophy. I will proceed with atypical dementia evaluation with paraneoplastic panel at [place] send out. Pt could not tolerate MRI. RECOMMENDATIONS: - Agree with psychiatric med recommendations, like psychiatric input will be espinoza long-term in appropriate use of psychiatric medications for behavioral control - Brain MRI w/ and w/o con was not possible given pt cannot lie still and I feel the results of the MRI are unlikely to integrated pest management technician so I do not feel the risk of general anesthesia to obtain the MRI would be worth it, we can consider a brain MRI in the outpatient setting at f/u - Paraneoplastic panel for encephalitis at [place] sent - Consider placement as patient cannot care for herself and her family cannot care for her - F/U with outpatient neurology 3-4 weeks after discharge 35 min spent with patient and her primary provider in the hospital, majority of time spent coordinating care for her and determining proper placement and diagnositic work up as well as discussing utility of brain MRI. Objective: Vital Signs Temp Pulse Resp BP Pulse Ox 36.7 C 66 16 104/56 L 96 06/04/16 07:56 06/04/16 07:56 06/04/16 07:56 06/04/16 07:56 06/04/16 07:56 Laboratory Results 06/02/16 04:24 06/02/16 04:24 Allergies/Adverse Reactions: No Known Allergies Allergy (Unverified 06/01/16 20:06)
[2016-06-04] MEDS: traZODone 100 MG TAB PO SCH (20:36)
[2016-06-04] MEDS: clonazePAM 1 MG TAB PO SCH (20:36)
[2016-06-04] MEDS: OLANZapine DISINTEGR 5 MG TAB PO SCH (20:36)
[2016-06-04] MEDS: Donepezil Hcl [Aricept] 23 MG PO SCH (20:37)
[2016-06-05 07:15] VITALS: RESP 16
[2016-06-05] MEDS: OMEGA-3 FATTY ACIDS 1,000 MG CAP PO SCH (08:40)
[2016-06-05] MEDS: MEMANTINE HCL 5 MG TAB PO SCH ×2 (08:40→21:58)
[2016-06-05] MEDS: ENOXAPARIN 40 MG/0.4 ML SYR SC SCH (08:41)
[2016-06-05] MEDS: THIAMINE HCL 100 MG TAB PO SCH (08:41)
--- NOTE | 2016-06-05 12:03 | HOSPPROG ---
Hospitalist Progress Note Assessment/Plan: Patient is a 56-year-old female with a history of early-onset dementia. She was brought to the emergency room with her daughter. The patient has been having progressive worsening behavioral disturbances. Reviewed with CM. #. Behavioral disturbances * Prozac and Remeron dc per psychiatry * Patient unable to sit still. Continues to pace back and forth in the hallway with the aid. * initial concern for Dementia /pt on Aricept and Namenda * reviewed her laboratory data/ no etiology of infection, labs overall stable. * CT scan findings show nothing acute * per pharmacy patient has been on lithium and Haldol in the past, but not currently on this * trial of Zyprexa * Dr Torre and he will f/u with her in the OP setting * home with C vs rehab # transaminitis * improved * hep panel negative # [facility] * wears CPAP at home. Daughter will bring in machine. # dispo: pending/ she will need a locked unit/ family can't take care of her. She has a 16 y/o son who is with her daughter who is in her 30's Reviewed with the rn case mgr/ Subjective: Up walking in the hallway. No specific issues. Objective: Vital Signs Temp Pulse Resp BP Pulse Ox 36.6 C 61 16 100/84 H 94 06/05/16 07:13 06/05/16 07:13 06/05/16 07:13 06/05/16 07:13 06/05/16 07:13 Laboratory Results 06/02/16 04:24 06/02/16 04:24 06/04/16 06/05/16 06/06/16 05:59 05:59 05:59 Intake Total 500 Balance 500 - Physical Exam Constitutional: no apparent distress, not in pain Eyes: PERRL, anicteric sclera Ears, Nose, Mouth, Throat: moist mucous membranes, hearing normal Cardiovascular: No JVD, No edema Respiratory: no respiratory distress, reduced air movement Gastrointestinal: No tenderness, No ascites Skin: warm, normal color Musculoskeletal: normal joint ROM, generalized weakness Neurologic: No AAOx3 Psychiatric: not anxious, poor insight, No thought process linear ICD10 Worksheet Patient Problems: Problems Problem Status Diagnosed Altered mental status Acute Dementia Acute
[2016-06-05] MEDS: HALOPERIDOL 0.5 MG TAB PO PRN (15:41)
[2016-06-05 21:58] VITALS: BP 115/69; PULSE 65; TEMP 98.8; O2SAT 97
[2016-06-05] MEDS: clonazePAM 1 MG TAB PO SCH (21:58)
[2016-06-05] MEDS: traZODone 100 MG TAB PO SCH (21:58)
[2016-06-05] MEDS: Donepezil Hcl [Aricept] 23 MG PO SCH (21:59)
[2016-06-05] MEDS: OLANZapine DISINTEGR 5 MG TAB PO SCH (21:59)
[2016-06-06] MEDS: OMEGA-3 FATTY ACIDS 1,000 MG CAP PO SCH (11:21)
[2016-06-06] MEDS: MEMANTINE HCL 5 MG TAB PO SCH (11:22)
[2016-06-06] MEDS: THIAMINE HCL 100 MG TAB PO SCH (11:22)
[2016-06-06] MEDS: ENOXAPARIN 40 MG/0.4 ML SYR SC SCH (11:23)
--- NOTE | 2016-06-06 11:23 | PDIAF ---
- Diagnosis Diagnosis: ams Code Status: Full Code - Medication Management Discharge Medications: Medications to Continue on Transfer Donepezil HCl [Aricept] 23 mg PO HS 06/02/16 [Last Taken 06/01/16] Herbals/Supplements -Info Only 1 ea PO DAILY 06/02/16 [Last Taken 06/01/16] Memantine HCl [Namenda 10 mg] 10 mg PO BID 06/02/16 [Last Taken 06/01/16 08:00] Couch-3 Fatty Acids [Fish Oil 1000 mg (*)] 1,000 mg PO DAILY 06/02/16 [Last Taken 06/01/16] clonAZEPAM [Clonazepam] 1 mg PO HS 06/02/16 [Last Taken 06/01/16] traZODone [traZODONE 100MG (*)] 100 mg PO HS 06/02/16 [Last Taken 06/01/16] Acetaminophen [Tylenol 325mg (*)] 650 mg PO Q4HRS PRN #0 tab 06/06/16 [Last Taken Unknown] OLANZapine DISINTEGR [ZyPREXA ZYDIS (*)] 5 mg PO HS #30 tab 06/06/16 [Last Taken Unknown] Thiamine HCl [Vitamin B-1] 100 mg PO DAILY #0 tab 06/06/16 [Last Taken Unknown] Discharge Medications: Refer to the Discharge Home Medication list for PRN reason. - Orders Services needed: Home Care, Registered Nurse, Certified Pst Supervisor, Master Equal Opportunity Representative Home Care Face to Face: I certify that this patient was under my care and that I had the required [id number] encounter meeting the encounter requirements on the discharge day. My findings support the fact that the patient is homebound as defined in CMS Chapter 7 Medicare Benefits Manual 30.1.1, The condition of the patient is such that there exists a normal inability to leave home and consequently, leaving home would require a considerable and taxing effort. - Follow Up Care Current Providers and Referrals: Terrance Rodriguez DO [Primary Care Provider] - As per Instructions
--- NOTE | 2016-06-06 14:41 | GDS ---
[f rep st] DISCHARGE SUMMARY DISCHARGE DIAGNOSES: 1. Acute encephalopathy. 2. Behavioral disturbances. 3. Transaminitis. 4. Obstructive sleep apnea. CONSULTATIONS: 1. Psychiatry. 2. Dr. Torre of Neurology. STUDIES AND PROCEDURES: CT of the head. PHYSICAL EXAM: GENERAL: The patient is alert. VITAL SIGNS: Afebrile at 37.1, pulse is 65, respira tory rate 16, blood pressure is 115/69, she is saturating 97% on room air. I have seen and evaluated the patient on the day of discharge. HOSPITAL COURSE: The patient is a 56-year-old female who was brought to the emergency room by her da ughter with progressively worsening behavioral disturbances. She was evaluated and diagnosed with (1 ) acute encephalopathy with behavioral disturbances. The patient was evaluated during this hospitali zation by both Neurology, as well Psychiatry. The etiology of her baseline behavioral disturbance is unclear at this time. However, it is felt that it is a combination of psychiatric disorder and miguel ntia. The patient's medications have been adjusted based on her behavior. It is recommended that th e patient be discharged to an inpatient locked unit. However, the family wishes to take the patient home and attempt to care for her at home. Home health care has been provided. Social Work has been involved in the patient's disposition and plan of care. She will follow up in the outpatient setting with her primary care doctor, as well as a psychiatrist of her choice, and Dr. Torre of Neurology. O ther chronic medical conditions include transaminitis, as well as obstructive sleep apnea. Her trans aminitis has improved with no further indication for evaluation. Again, the patient will be discharg ed home with her daughter and home health care. Managing the care of the patient is going to provide stress, as well as significant challenge in the outpatient setting. FOLLOWUP: Followup will be with Dr. Fernando Torre, as well as Psychiatry, and the patient's primary c are physician. TIME SPENT: I spent greater than 35 minutes in the care, coordination, and management of the patient 's disposition. DISCHARGE MEDICATIONS: A prescription for Zyprexa has been provided for the patient at the time of d isposition. Please refer to EMR form for other discharge medications. /[id number]/MODL
== END 2016-06-06 12:52 | disposition home health service (06) | DRG 884 ==
LOC: F3E 23:40
PROVIDERS: ADMIT Internal Medicine; ATTEND Internal Medicine
DX: F03.91 Unspecified dementia, unspecified severity, with behavioral disturbance (principal); G93.49 Other encephalopathy; G47.33 Obstructive sleep apnea (adult) (pediatric); R74.0 Nonspecific elevation of levels of transaminase and lactic acid dehydrogenase [LDH]; Z81.8 Family history of other mental and behavioral disorders
CPT/HCPCS: 80305; 82607-90; 86341-90; 96374; 97161-GP; 97165-GO; J1650